=== PATIENT | male | born 1965 | race Hispanic/Latino ===

== ENCOUNTER → 2019-07-25 | Day surgery (SDC) | payer BC ==
[~2019-07-25] MED LIST: FENTANYL CITRATE/PF 100MCG/2 ML INJ ONE; LEVOTHYROXINE50 MCG PO; LISINOPRIL10 MG PO; MIDAZOLAM HCL 2 MG/2 ML VIAL ONE; NEXIUM40 MG PO; PROPOFOL IV EMULSION 10 MG/ML 50 ML VIAL ONE; TRAMADOL HCL 50 MG TAB ONE
[2019-07-25 09:40] VITALS: BP 120/90
== END | disposition home or self-care (01) ==
LOC: OR 06:30
PROVIDERS: ATTEND Internal Medicine Gastroenterology
DX: Z12.11 Encounter for screening for malignant neoplasm of colon (principal); K57.30 Diverticulosis of large intestine without perforation or abscess without bleeding; K64.8 Other hemorrhoids; K21.9 Gastro-esophageal reflux disease without esophagitis; K31.89 Other diseases of stomach and duodenum; I10 Essential (primary) hypertension; E03.9 Hypothyroidism, unspecified; R07.9 Chest pain, unspecified; Z88.0 Allergy status to penicillin
CPT/HCPCS: 45378; J2250; J2704; J3010